=== PATIENT | female | born 1965 ===

== ENCOUNTER 2017-11-26 15:34 | Emergency (ER) | payer SELFPAY ==
[~2017-11-26] VITALS: Ht 149.9 cm; Wt 69.4 kg
[2017-11-26] MEDS ORDERED: RISPERDAL0.5 MG PO (16:29)
[2017-11-26] MEDS ORDERED: FLEXERIL5 M1 PO (18:00)
[2017-11-26 18:09] VITALS: BP 110/65
== END 2017-11-26 18:09 | disposition home or self-care (01) | DRG 74 ==
LOC: ED 15:34
DX: M54.12 Radiculopathy, cervical region (principal); M62.838 Other muscle spasm; B19.20 Unspecified viral hepatitis C without hepatic coma; M19.90 Unspecified osteoarthritis, unspecified site; F17.210 Nicotine dependence, cigarettes, uncomplicated